=== PATIENT | female | born 1990 | race Two or more races ===

== ENCOUNTER 2019-09-23 03:06 | Observation (INO) | payer BC ==
[2019-09-23] VITALS (26 sets, daily range): BP systolic 80–124; BP diastolic 35–89
[~2019-09-23] VITALS: Ht 165.1 cm; Wt 51.7 kg
--- NOTE | 2019-09-23 03:15 | NUR ---
ED Nurse Note: Pt walked in c/o possible allergic reaction. Pt stated she has difficutly swollowing after eating a hotdog about one hour ago. ao4. nad. vss. family at bedside.
--- NOTE | 2019-09-23 03:20 | NUR ---
ED Nurse Note: iv acess established. blood collected; sent down to lab.
--- NOTE | 2019-09-23 03:28 | Emergency Room Report ---
History of Present Illness General Chief Complaint: Nausea Source: Patient Present Illness HPI Disclaimer: Please note that this report is being documented using DRAGON technology. This can lead to erroneous entry secondary to incorrect interpretation by the dictating instrument. HPI: 29-year-old female presents for evaluation of throat pain. She was at a bar with some friends approx 1 hour ago. She ate a hotdog and after which began to feel pain and swelling in the throat. Had a difficult time swallowing. Try to take a Benadryl but could not swallow the pill. Denies any shortness of breath, stridor, wheezing, chest pain, tightness, nausea, vomiting , diarrhea, fevers, chills, lightheadedness, headaches. Has a history of allergies to peanuts, Bactrim, ragweed but no other known food allergies. No history of anaphylaxis. PMH: Denies PSH: Denies Allergies: Ragweed, Bactrim, peanuts Social Hx: Alcohol use. Denies tobacco use Allergies: Coded Allergies: Cultivated Oat Pollen (Verified Allergy, Unknown, 09/23/19) PEANUT (Verified Allergy, Unknown, 09/23/19) SULFAMETHOXAZOLE (Verified Allergy, Unknown, 09/23/19) TRIMETHOPRIM (Verified Allergy, Unknown, 09/23/19) Patient History Last Menstrual Period: 08/2019 Nursing Documentation-PMH Past Medical History: No Stated History Review of Systems All Other Systems: negative except mentioned in HPI Physical Exam Vital Signs Date Time Temp Pulse Resp B/P (MAP) Pulse Ox O2 Delivery O2 Flow Rate FiO2 09/23/19 03:11 97.9 83 18 112/82 (92) 100 Room Air General: Awake and alert, no acute distress HEENT: NC/AT. EOMI. injected sclera bilaterally. Uvula is midline. Tonsils are 1+ and nonobstructing. No pharyngeal edema, erythema, exudate, vesicles or other abnormalities identified. Spitting up her secretions. Phonation is normal. No stridor. Neck: Supple, trachea midline Chest Wall: No tenderness, no deformity Cardiovascular: RRR. S1 and S2 normal. No murmur appreciated Resp: Normal work of breathing. No cough, wheezing or crackles appreciated Abdomen: Abdomen is soft, nondistended. Nontender Skin: Intact. No abrasions, laceration or rash over the exposed skin MSK: Normal tone and bulk. Moving all extremities. No obvious deformity. Neuro: Awake and alert. Mentating appropriately. Medical Decision Making Diagnostic Impression: Primary Impression: Esophageal obstruction due to food impaction ER Course 29-year-old female presents for evaluation of sore throat and throat swelling sensation after eating a hot dog approximately 1 hour ago. She is concerned over allergic reaction but on my initial evaluation there is no signs of anaphylaxis. Also in the differential are esophageal trauma, peritonsillar abscess, retropharyngeal abscess, esophageal spasm, food bolus, food impaction. Vital signs are within normal limits. Visual inspection of pharynx unremarkable. She is having some difficulty with her secretions. Phonation is normal. Will give Benadryl, steroids, Toradol. Lungs are clear otherwise. Will obtain noncontrast CT scan of the neck and chest as well as basic labs. Laboratory Tests Test 09/23/19 03:15 White Blood Count 7.7 K/UL (4.8-10.8) Red Blood Count 4.64 M/UL (4.20-5.40) Hemoglobin 14.1 G/DL (12.0-16.0) Hematocrit 41.6 % (37.0-47.0) Mean Corpuscular Volume 90 FL (80-99) Mean Corpuscular Hemoglobin 30.4 PG (27.0-31.0) Mean Corpuscular Hemoglobin Concent 33.9 G/DL (32.0-36.0) Red Cell Distribution Width 11.2 % (11.6-14.8) L Platelet Count 380 K/UL (150-450) Mean Platelet Volume 4.6 FL (6.5-10.1) L Neutrophils (%) (Auto) % (45.0-75.0) Lymphocytes (%) (Auto) % (20.0-45.0) Monocytes (%) (Auto) % (1.0-10.0) Eosinophils (%) (Auto) % (0.0-3.0) Basophils (%) (Auto) % (0.0-2.0) Neutrophils % (Manual) Pending Lymphocytes % (Manual) Pending Platelet Estimate Pending Platelet Morphology Pending Sodium Level 141 MMOL/L (136-145) Potassium Level 3.6 MMOL/L (3.5-5.1) Chloride Level 102 MMOL/L (98-107) Carbon Dioxide Level 26 MMOL/L (21-32) Anion Gap 13 mmol/L (5-15) Blood Urea Nitrogen 9 mg/dL (7-18) Creatinine 0.9 MG/DL (0.55-1.30) Estimate Glomerular Filtration Rate > 60 mL/min (>60) Glucose Level 108 MG/DL (74-106) H Calcium Level 9.1 MG/DL (8.5-10.1) Human Chorionic Gonadotropin, Qual Negative (NEGATIVE) Reevaluation Time: 07:16 Last Vital Signs Date Time Temp Pulse Resp B/P (MAP) Pulse Ox O2 Delivery O2 Flow Rate FiO2 09/23/19 03:11 97.9 83 18 112/82 (92) 100 Room Air Reevaluation Impression Attempted to pass a glide scope to evaluate the lower pharynx but was unable to see any foreign body or abnormalities. CT of the neck shows a upper esophageal food bolus concerning for impaction. No other findings on CT of the chest. Patient tried to drink some carbonated beverage jump up and down and was given glucagon as well without significant improvement. Will discuss with GI. Patient will be signed out to oncoming physician. Signed Out To: Dr. Mainor Jaime Hydrocodone Bit/Acetaminophen 5-325* (NORCO 5-325*) 1 Each Tablet 1 TAB ORAL Q4H PRN for 7 Days, #20 TAB Prov: Narendra Felder MD 09/24/19 Juan Whitfield MD Sep 23, 2019 03:28
[2019-09-23] MEDS ORDERED: Ketorolac 30mg Inj IV ONE (03:30)
[2019-09-23] MEDS ORDERED: Solu-MEDROL 125mg Inj IVP ONE (03:30)
[2019-09-23] MEDS ORDERED: DiphenhydrAMINE 50mg/ml Inj IVP ONE (03:30)
[2019-09-23 05:20] LABS: HEMATOCRIT 41.6 % (37.0-47.0); HEMOGLOBIN 14.1 G/DL (12.0-16.0); MEAN CORPUSCULAR VOLUME 90 FL (80-99); PLATELET COUNT 380 K/UL (150-450); RED BLOOD COUNT 4.64 M/UL (4.20-5.40); RED CELL DISTRIBUTION WIDTH 11.2 % (11.6-14.8); WHITE BLOOD COUNT 7.7 K/UL (4.8-10.8)
[2019-09-23 05:23] LABS: ANION GAP 13 mmol/L (5-15); BLOOD UREA NITROGEN 9 mg/dL (7-18); CALCIUM 9.1 MG/DL (8.5-10.1); CARBON DIOXIDE 26 MMOL/L (21-32); CHLORIDE 102 MMOL/L (98-107); CREATININE 0.9 MG/DL (0.55-1.30); POTASSIUM 3.6 MMOL/L (3.5-5.1); SODIUM 141 MMOL/L (136-145)
[2019-09-23] MEDS ORDERED: Glucagon 1mg Inj IV ONE (06:00)
--- NOTE | 2019-09-23 06:32 | NUR ---
HAND-OFF: Report given to gomez. patient in stable condition.
--- NOTE | 2019-09-23 06:52 | Diagnostic Imaging Report ---
EXAM: CT Neck Without Intravenous Contrast CLINICAL HISTORY: PAIN TECHNIQUE: Axial computed tomography images of the neck without intravenous contrast. CTDI is 3.7 mGy and DLP is 114 mGy-cm. One or more of the following dose reduction techniques were used: automated exposure control, adjustment of the mA and/or kV according to patient size, use of iterative reconstruction technique. Coronal and sagittal reformatted images were created and reviewed. COMPARISON: No relevant prior studies available. FINDINGS: Oropharynx: Unremarkable. No significant tonsillar enlargement. Hypopharynx: Unremarkable. No edema. Larynx: Unremarkable. No thickening of the epiglottis. Trachea: Unremarkable. Retropharyngeal space: Unremarkable. No fluid collection. Submandibular/parotid glands: Unremarkable. No CT evidence of acute sialadenitis. Thyroid: Unremarkable. No focal lesion. Bones/joints: No acute fracture. Soft tissues: No soft tissue gas to suggest indirect evidence of upper airway perforation. Vasculature: No acute findings. Lymph nodes: Unremarkable. No lymphadenopathy. Esophagus: 3.8 cm x 1.7 cm x 2 cm (craniocaudad/AP/transverse) mixed density distending the upper esophagus suggestive of impacted food bolus or other ingested material. Nonspecific linear hyperdensity is present along the superior aspect of the material distending the esophagus. Lung apices: See separate CT chest report. IMPRESSION: 1. 3.8 cm x 1.7 cm x 2 cm mixed density distending the upper esophagus suggestive of impacted food bolus. Nonspecific linear hyperdensity is present along the superior aspect of the material distending the esophagus. Correlate with patient history/presentation. GI consultation could be obtained as clinically warranted. 2. No soft tissue gas to suggest indirect evidence of upper airway perforation. <MYCVCSECTION> Communications: 09/23/19 07:01 Verify Receipt Verified receipt with ALBER Farias, given to DR. Whitfield on 09/22 07:01 (-08:00)
--- NOTE | 2019-09-23 06:56 | Diagnostic Imaging Report ---
EXAM: CT Chest Without Intravenous Contrast CLINICAL HISTORY: Shortness of breath TECHNIQUE: Axial computed tomography images of the chest without intravenous contrast. CTDI is 2.9 mGy and DLP is 89.3 mGy-cm. One or more of the following dose reduction techniques were used: automated exposure control, adjustment of the mA and/or kV according to patient size, use of iterative reconstruction technique. Coronal and sagittal reformatted images were created and reviewed. COMPARISON: No relevant prior studies available. FINDINGS: Lungs: No focal consolidation. Right upper lobe granuloma. Pleural space: No pleural effusion or pneumothorax. Heart: Unremarkable. No cardiomegaly. No significant pericardial effusion. Mediastinum: Impacted food bolus distending the upper esophagus as described on separate CT neck report. No pneumomediastinum. Bones/joints: Chronic multilevel endplate height loss/Schmorl's nodes contributing to mildly exaggerated kyphosis Soft tissues: Unremarkable. Vasculature: Unremarkable. No thoracic aortic aneurysm. Lymph nodes: Unremarkable. No enlarged lymph nodes. IMPRESSION: 1. Impacted food bolus distending the upper esophagus as described on separate CT neck report. See separate report for further detail. 2. No pneumomediastinum. <MYCVCSECTION> Communications: 09/23/19 07:02 Verify Receipt Verified receipt with ALBER Farias, given to DR. Whitfield on 09/22 07:02 (-08:00)
--- NOTE | 2019-09-23 07:10 | NUR ---
ED Nurse Note: Received report from Natalei VALENTIN. Patient resting in bed, no s/s of acute distress.
--- NOTE | 2019-09-23 07:20 | NUR ---
HAND-OFF: Report given to BARBIE Viveros.
[2019-09-23] MEDS: Potassium Chloride 10 MEQ in D5 1/2NS 1,000 ML IV SCH ×2 (08:05→17:30)
[2019-09-23] MEDS ORDERED: Morphine Sulfate 2mg/ml Inj(IV/IM USE ONLY) IVP ONE (09:45)
--- NOTE | 2019-09-23 09:50 | NUR ---
HAND-OFF: Report given to Janny VALENTIN.
[2019-09-23] MEDS ORDERED: Lidocaine 1% MPF 10mg/ml 5ml ONE (10:00)
[2019-09-23] MEDS ORDERED: Flumazenil 0.1mg/ml 5ml Inj IV ONE ×3 (10:00→11:45)
[2019-09-23] MEDS ORDERED: D5NS 1,000 ML IV SCH (10:00)
[2019-09-23] MEDS ORDERED: Albuterol/Ipratropium 3ml neb HHN PRN (10:00)
[2019-09-23] MEDS ORDERED: Propofol 200mg/20ml IV ONE ×3 (10:00→12:45)
[2019-09-23] MEDS ORDERED: LR 1000ml ONE (10:00)
--- NOTE | 2019-09-23 10:00 | NUR ---
ED Nurse Note: PT SIGNED TO CONSENT ON ESOPHAGOGASTRODUODENOSCOPY WITH POSSIBLE BIOPSY, POLYPECTOMY, HEMOSTASIS, DILATION AND FOREIGN BODY REMOVED. DR MADDOX AT THE BED SIDE.
--- NOTE | 2019-09-23 10:01 | NUR ---
ED Nurse Note: RN INSTRUCTED PT NOT TO EAT OR DRINK ANYTHING. PT VERBALIZED UNDERSTANDING OF TEACHINGS.
--- NOTE | 2019-09-23 10:46 | NUR ---
ED Nurse Note: Dr Armen Elizabeth and Dr Klaus Gant at the bed side for esophagogastroduodenoscopy procedure under general anesthesia. Primary RN and OR tech assisted at the bed side. Time Out at 1046am.
--- NOTE | 2019-09-23 10:51 | NUR ---
ED Nurse Note: Intubation done by Dr Diehl at the bed side. Ambubaging pt with oxygen at 15LPM.
--- NOTE | 2019-09-23 10:59 | NUR ---
ED Nurse Note: Versed 5mg IVP given at [address] Gant Ketamine 75mg given IVP at [address] Gant Propofol 1000mg given IVP at [address] Gant Lidocaine 100mg given IVP at [address] Gant
--- NOTE | 2019-09-23 11:00 | NUR ---
ED Nurse Note: RN pulled put Propofol 1000mg/ml and another 200mg/20ml from pyxis per Dr Gant's order for General Anesthesia.
--- NOTE | 2019-09-23 11:14 | NUR ---
ED Nurse Note: Propofol 200mg given IVP by Dr Gant at 1114.
--- NOTE | 2019-09-23 11:25 | NUR ---
ED Nurse Note: Propofol 1000mg via infusion/piggyback by Dr Gant.
--- NOTE | 2019-09-23 12:12 | NUR ---
ED Nurse Note: Extubation done at [address] Diehl. Pt unresponsive to tactile stimuli such as sternal rub. Oxygen via simple mask at 15LPM ongoing. RT and primary RN at the bed side.
--- NOTE | 2019-09-23 12:29 | Anethesia Preoperative Eval ---
Anesthesia Pre-op PMH/ROS General Date of Evaluation: Sep 23, 2019 Time of Evaluation: 10:16 Anesthesiologist: Stalin ASA Score: ASA 1 - Emergency Mallampati Score Class I : Soft palate, uvula, fauces, pillars visible Class II: Soft palate, uvula, fauces visible Class III: Soft palate, base of uvula visible Class IV: Only hard plate visible Mallampati Classification: Class I Surgeon: Clara Diagnosis: Foriegn Body in Pharnx Surgical Procedure: Remove Foriegn Body in Pharnx Anesthesia History: none Family History: no anesthesia problems Allergies: Coded Allergies: Cultivated Oat Pollen (Verified Allergy, Unknown, 09/23/19) PEANUT (Verified Allergy, Unknown, 09/23/19) SULFAMETHOXAZOLE (Verified Allergy, Unknown, 09/23/19) TRIMETHOPRIM (Verified Allergy, Unknown, 09/23/19) Medications: see eMAR Patient NPO?: Yes Past Medical History Neurologic/Psychiatric: Reports: other - ADHD Anesthesia Pre-op Phys. Exam Physician Exam Last Vital Signs Date Time Temp Pulse Resp B/P (MAP) Pulse Ox O2 Delivery O2 Flow Rate FiO2 09/23/19 10:51 96 16 106/60 96 Simple Mask 15.0 09/23/19 10:46 98.0 Constitutional: NAD Neurologic: CN 2-12 intact Cardiovascular: RRR Respiratory: CTA Gastrointestinal: S/NT/ND Airway Exam Mallampati Score: Class I MO: full ROM: full Teeth: intact Anesthesia Pre-op A/P Labs Hematology Test 09/23/19 03:15 White Blood Count 7.7 K/UL (4.8-10.8) Red Blood Count 4.64 M/UL (4.20-5.40) Hemoglobin 14.1 G/DL (12.0-16.0) Hematocrit 41.6 % (37.0-47.0) Mean Corpuscular Volume 90 FL (80-99) Mean Corpuscular Hemoglobin 30.4 PG (27.0-31.0) Mean Corpuscular Hemoglobin Concent 33.9 G/DL (32.0-36.0) Red Cell Distribution Width 11.2 % (11.6-14.8) L Platelet Count 380 K/UL (150-450) Mean Platelet Volume 4.6 FL (6.5-10.1) L Neutrophils (%) (Auto) % (45.0-75.0) Lymphocytes (%) (Auto) % (20.0-45.0) Monocytes (%) (Auto) % (1.0-10.0) Eosinophils (%) (Auto) % (0.0-3.0) Basophils (%) (Auto) % (0.0-2.0) Differential Total Cells Counted 100 Neutrophils % (Manual) 26 % (45-75) L Lymphocytes % (Manual) 67 % (20-45) H Monocytes % (Manual) 5 % (1-10) Eosinophils % (Manual) 2 % (0-3) Basophils % (Manual) 0 % (0-2) Band Neutrophils 0 % (0-8) Platelet Estimate Adequate Platelet Morphology Normal Red Blood Cell Morphology Normal Chemistry Test 09/23/19 03:15 Sodium Level 141 MMOL/L (136-145) Potassium Level 3.6 MMOL/L (3.5-5.1) Chloride Level 102 MMOL/L (98-107) Carbon Dioxide Level 26 MMOL/L (21-32) Anion Gap 13 mmol/L (5-15) Blood Urea Nitrogen 9 mg/dL (7-18) Creatinine 0.9 MG/DL (0.55-1.30) Estimat Glomerular Filtration Rate > 60 mL/min (>60) Glucose Level 108 MG/DL (74-106) H Calcium Level 9.1 MG/DL (8.5-10.1) Human Chorionic Gonadotropin, Qual Negative (NEGATIVE) Serum Test Test 09/23/19 03:15 Human Chorionic Gonadotropin, Qual Negative (NEGATIVE) Risk Assessment & Plan Assessment: ASA 1E Plan: TIVA Status Change Before Surgery: Klaus Escalera MD Sep 23, 2019 12:29
--- NOTE | 2019-09-23 12:31 | Immediate Post-Op Evaluation ---
Immediate Post-Op Evalulation Immediate Post-Op Evalulation Procedure: Remove Foriegn Body in Pharnx Date of Evaluation: Sep 23, 2019 Time of Evaluation: 12:36 IV Fluids: 2000 NS Blood Products: 0 Estimated Blood Loss: 1 Urinary Output: 0 Blood Pressure Systolic: 91 Blood Pressure Diastolic: 60 Pulse Rate: 87 Respiratory Rate: 16 O2 Sat by Pulse Oximetry: 99 Temperature (Fahrenheit): 98.4 Pain Score (1-10): 1 Nausea: No Vomiting: No Complications 0 Patient Status: awake, reacts, patent, extubated, none Hydration Status: adequate Klaus Gant MD Sep 23, 2019 12:31
--- NOTE | 2019-09-23 12:32 | 48 Hour Post Anesthesia Eval ---
Post Anesthesia Evaluation Procedure: Remove Foriegn Body in Pharnx Date of Evaluation: Sep 23, 2019 Time of Evaluation: 14:46 Blood Pressure Systolic: 101 0: 72 Pulse Rate: 78 Respiratory Rate: 18 Temperature (Fahrenheit): 98.5 O2 Sat by Pulse Oximetry: 100 Airway: patent Nausea: No Vomiting: No Pain Intensity: 0 Hydration Status: adequate Cardiopulmonary Status: Stable Mental Status/LOC: patient returned to baseline Follow-up Care/Observations: 0 Post-Anesthesia Complications: 0 Follow-up care needed: ready to discharge Klaus Gant MD Sep 23, 2019 12:32
--- NOTE | 2019-09-23 12:45 | NUR ---
ED Nurse Note: Pt is occasionally moving and coughing at this time. RN suctioned pt to remove excess saliva. Sats 95 % via simple mask at 15LPM. Still unable to make eye contact. IV fluids running.
--- NOTE | 2019-09-23 13:15 | NUR ---
ED Nurse Note: Pt is more arousable and awake at this time. Pt is responsive to tactile and verbal stimulation. Pt is able to open her eyes when calling her name. Mother at the bed side.
--- NOTE | 2019-09-23 13:36 | NUR ---
ED Nurse Note: Report given to Rina VALENTIN of Med Surg unit.
[2019-09-23] MEDS ORDERED: ADDERAL20 MG ORAL (13:43)
--- NOTE | 2019-09-23 13:57 | NUR ---
ED Nurse Note: Pt transferred to Med Surg unit via gurney with all her belongings sent with her. Pt is more awake and arousable.
--- NOTE | 2019-09-23 14:15 | NUR ---
NURSE NOTES: Pt came up to unit via maile w/mom at bedside and belongings accounted for. Pt A&Ox4; VSS; on 2L NC; groggy but easily arousable; and in no apparent distress. IV site intact/asymptomatic w/IVF infusing. Will contact primary MD for admission orders.
--- NOTE | 2019-09-23 15:15 | Consultation ---
DATE OF CONSULTATION: 09/23/2019 GASTROENTEROLOGY CONSULTATION CONSULTING PHYSICIAN: Armen Elizabeth M.A. CHIEF COMPLAINT: I was asked to see this patient by Dr. Narendra Felder for evaluation of acute dysphagia. HISTORY OF PRESENT ILLNESS: The patient is a 29-year-old white woman without any significant past medical history, who comes into the hospital due to acute dysphagia. The patient states that she had been drinking last night and was somewhat intoxicated. She ate a hot dog, which stuck in her upper chest area and since then she has not been able to eat and clear secretions. She came to the emergency room where she has been diagnosed with acute esophageal food impaction, which shows up in CT scan as well. She has never had any problems swallowing before and she does not have any history of acid reflux disorder. PAST MEDICAL HISTORY: Remarkable for history of ADHD. MEDICATIONS: control pills and Adderall. FAMILY HISTORY: Negative. SOCIAL HISTORY: The patient is single. She has no children. She does not smoke and drinks intermittently. REVIEW OF SYSTEMS: Otherwise negative. PHYSICAL EXAMINATION: GENERAL: Thin white woman seen in the emergency room, spitting out intermittently. HEENT: Normocephalic and atraumatic. NECK: Supple. CHEST: Revealed breath sounds. CARDIOVASCULAR: Revealed tachycardic heart rate. ABDOMEN: Soft. EXTREMITIES: Revealed no edema. LABORATORY AND DIAGNOSTIC DATA: Noted. CT scan was noted. ASSESSMENT: This patient presents with acute esophageal food impaction and she is unable to clear her secretions. She will need to undergo emergency endoscopy with the foreign body removal and possible dilation. The indications, risks, and alternatives were explained and informed consent was obtained. The patient was advised that she may require intubation with mechanical ventilation during the procedure for airway protection. RECOMMENDATIONS: 1. Keep NPO. 2. IV fluids. 3. Emergency endoscopy today. Thank you for asking me to participate in the care of this patient. Armen Elizabeth M.D. DR: MARYAN JOB#: [id number] CC: CUONG
--- NOTE | 2019-09-23 15:45 | History and Physical Report ---
DATE OF ADMISSION: 09/23/2019 CHIEF COMPLAINT: Impacted food bolus. HISTORY OF PRESENT ILLNESS: The patient is a 29-year-old female. She has a history of asthma, was eating a hot dog with her friends the of admission when she swallowed and felt like the food became stuck. She could not swallow any of her secretions. She has some mild shortness of breath. She presented to the emergency room, she has history of noted to be having possible allergic reaction. She received a dose of steroids and Benadryl. She eventually did had a CAT scan that showed an impacted food bolus in the esophagus. She was given glucagon without any improvement. She is now admitted for possible endoscopy for removal of the food bolus. PAST MEDICAL HISTORY: Significant for asthma. MEDICATIONS: None. ALLERGIES: Include Bactrim. FAMILY HISTORY: Noncontributory. SOCIAL HISTORY: Negative for alcohol or drugs. REVIEW OF SYSTEMS: Negative except for difficulty swallowing. PHYSICAL EXAMINATION: VITAL SIGNS: Temperature 98 degrees, pulse 87, respirations 18, and blood pressure 112/82. GENERAL: The patient is well developed, no apparent distress. HEART: Regular rate and rhythm. LUNGS: Clear. ABDOMEN: Soft. EXTREMITIES: Without clubbing, cyanosis, or edema. LABORATORY DATA: White count 8, hemoglobin 14, platelet count of 380. Sodium 141, potassium 3.6. Beta hCG is negative. CT was reviewed with the ER physician. ASSESSMENT: This is a pleasant female with a history of asthma admitted with complaints of an impacted food bolus in the esophagus. PLAN: GI consultation for endoscopy, p.r.n. breathing treatments, IV hydration. [id number] was discussed at the bedside with the patient's sister, who is a nurse. Narendra Felder M.D. DR: CLAUDIO JOB#: [id number] CC:
[2019-09-23] MEDS ORDERED: Chloraseptic Spray 20mL Bottle ORAL PRN (17:15)
[2019-09-23] MEDS: D5NS 1,000 ML IV SCH (18:00)
--- NOTE | 2019-09-23 19:57 | NUR ---
HAND-OFF: Report given to BARBIE Wallace.
[2019-09-23] MEDS: HYDROcodone/Acetamin 5/325 tab ORAL PRN (22:06)
[2019-09-24] VITALS: BP 99/60
--- NOTE | 2019-09-24 01:23 | NUR ---
NURSES NOTE: Met pt in bed, A/OX4, sister at bedside. No outward s/s of distress noted. Breathing pattern is even and unlabored on room air. New IV put into L hand, 20 gauge. New order for [place] 5-325mg q4h PRN obtained. All due meds will be given. Pt states [place] is effective. VS stable. Pt will continue to be monitored.
[2019-09-24 04:00] VITALS: BP 95/58
[2019-09-24] MEDS: HYDROcodone/Acetamin 5/325 tab ORAL PRN (04:13)
[2019-09-24] MEDS: D5NS 1,000 ML IV SCH (05:30)
--- NOTE | 2019-09-24 07:30 | Consultation ---
DATE OF CONSULTATION: 09/23/2019 I attest that I discussed the nature of the procedure, its benefits, risks and complications, and alternatives (and the risks and benefits of such), prior to the procedure, with the patient. I attest that, if there was a reasonable possibility of needing a blood transfusion, the patient was given the [facility] standardized written summary, concerned to the Geovany Francoise Blood Safety Act ([place] Health and Safety Code #1645, as amended). I attest that I re-evaluated the patient just prior to the surgery and that there has been no change in the patient's history and physical examination except as documented below. Armen Elizabeth M.D. DR: Shila JOB#: [id number] CC: CUONG
[2019-09-24] MEDS ORDERED: NORCO 5-325 TA1 EACH ORAL (07:49)
[2019-09-24 08:00] VITALS: BP 100/63
--- NOTE | 2019-09-24 08:00 | NUR ---
NURSE NOTES: Received report from Sophy VALENTIN. Patient is awake and oriented, no acute distress noted, reporting no pain, IVF running per order. Discharge order noted, will carry out. Call light within reach.
--- NOTE | 2019-09-24 08:06 | NUR ---
HAND OFF: Report given to BARBIE Bustamante.
[2019-09-24] MEDS ORDERED: D5NS 1000ml IV ONE (09:09)
--- NOTE | 2019-09-24 09:10 | NUR ---
NURSE NOTES: Patient discharged without distress. Aftercare instructions provided, patient verbalized understanding of aftercare instructions. Patient provided with Rx by Dr. Felder. IV removed intact, wristband removed. Patient escorted to private vehicle.
--- NOTE | 2019-09-24 16:29 | NUR ---
*-* NO INSURANCE INFORMATION IN THE BAR [employer]NA[employer] TO SEND CLINICALS OR REVIEWS *-*
--- NOTE | 2019-09-26 11:10 | Endoscopy Procedure Note ---
Endoscopy Procedure Note General Indication for Procedure: dysphagia Procedures Performed: EGD Operative Findings/Diagnosis: food Specimen: none Pt Tolerated Procedure Well: No Estimated Blood Loss: none Anesthesia Anesthesiologist: Stalin Anesthesia: MAC Medications Medication Given: see anesthesia record Inserted Devices Implant(s) used?: No GI Core Measures 50 yrs or older w/o bx or poly: Not Applicable 10yrs. F/U recommended: Not Applicable Armen Elizabeth MD Sep 26, 2019 11:10
--- NOTE | 2019-09-26 11:12 | Brief Operative Note ---
Immediate Post Operative Note Operative Note Chief Complaint: dysphagia Pre-op Diagnosis: esoph food impaction Procedure: EGD F.B. Post-op Diagnosis: same Surgeon: lilia Anesthesiologist: see report Anesthesia: MAC Specimen: none Complications: none Condition: stable Fluids: see report Estimated Blood Loss: none Drains: none Implant(s) used?: No Armen Elizabeth MD Sep 26, 2019 11:12
--- NOTE | 2019-09-26 14:15 | Procedure Note ---
DATE OF PROCEDURE: 09/23/2019 GASTROENTEROLOGY PROCEDURE REPORT PROCEDURE: Upper gastrointestinal endoscopy with foreign body removal. SURGEON: Armen Elizabeth M.D. ANESTHESIA: Please see the separate anesthesiologist notes for details. PRE-ENDOSCOPIC DIAGNOSIS: Acute dysphagia. POST-ENDOSCOPIC DIAGNOSES: 1. Esophageal food impaction in the proximal esophagus. 2. Mild irregularity and erythema noted in the impacted area. DESCRIPTION OF PROCEDURE: The procedure, its risks, indications, alternatives, and possible complications were explained to the patient and informed consent was obtained. The upper endoscope was introduced through the oropharynx and advanced to the proximal esophagus. Esophageal food impaction was noted. The anesthesiologist then intubated the patient and the procedure was continued. Multiple attempts were made with various instruments including a basket wire, alligator forceps, regular forceps, and optic grasping forceps. There were small pieces of the food that would come out, but successful disimpaction was not possible. Eventually however, the food impaction material softened and could be passed through and then fell into the stomach. Re-examination of the upper esophagus showed some mild narrowing and ring like effect in the area and some erythema on the elkins. There was however no significant narrowing that would require evaluation. The remainder of the upper gastrointestinal examination down to the duodenum was normal. The endoscope was removed. The patient was sent to recovery in good condition. COMPLICATIONS: None. ASSESSMENT: This patient's examination was notable for esophageal food impaction, which is not treated endoscopically and resolved. The patient should receive 2 weeks of proton pump inhibitor therapy to help heal the area in the upper esophagus. She should have a followup endoscopy to re-examine the area for any remaining anatomical defects. RECOMMENDATIONS: 1. Resume oral diet. 2. Proton pump inhibitor daily. 3. A repeat endoscopy in about 2 months. Armen Elizabeth M.D. DR: ESCOBAR JOB#: [id number] CC: CUONG
--- NOTE | 2019-10-14 16:44 | Discharge Summary ---
Discharge Summary Discharge Summary _ DATE OF ADMISSION: 09/23/2019 DATE OF DISCHARGE: 09/24/2019 DISCHARGED BY: Dr. Narendra Felder CONSULTANTS: Dr. Armen Elizabeth BRIEF HOSPITAL COURSE: Patient is a 29-year-old female, with history of asthma, was eating a hot dog and when she swallowed, felt like food got stuck. She could not swallow any of her secretions. She had mild shortness of breath. She presented to the emergency room. Upon evaluation at ED, vital signs were stable. Blood work was unremarkable. hCG negative. CT scan of the neck showed upper esophageal food bolus concerning for impaction. At the ED, ER physician attempted to pass a glide scope to evaluate the lower pharynx but was unable to see any foreign body or abnormalities. She was given a dose of steroids and Benadryl for possible allergic reaction. She was given glucagon without any improvement. She was then admitted for possible endoscopy for removal of food bolus. Patient was admitted under observation. Patient was placed on n.p.o. GI was consulted. Patient presented with acute esophageal food impaction and is unable to clear her secretions. She then underwent emergency endoscopy. Patient underwent upper GI endoscopy with foreign body removal. Findings showed esophageal food impaction in the proximal esophagus. Mild irregularity and erythema in the impacted.. She was recommended 2-week treatment of proton pump inhibitor to help heal the area in the upper esophagus. Recommended to have follow-up endoscopy in about 2 months to examine the area for any remaining anatomical defects. Diet was advanced. She was tolerating diet well. She was eventually cleared for discharge. FINAL DIAGNOSES: Acute dysphasia due to esophageal food impaction status post upper endoscopy DISPOSITION: Patient was discharged home. DISCHARGE MEDICATIONS: Refer to Discharge Medication List. DISCHARGE INSTRUCTIONS: Follow-up in a week. I have been assigned to complete a discharge summary on this account, I was not involved with the patient's management.--SPENCER Love Jacqueline Robles NP Oct 14, 2019 16:44
== END 2019-09-24 09:10 | disposition home or self-care (01) ==
LOC: EMR 03:38 → EDBEDREQSVC 07:58 → EDBEDREQ 12:05 → INTOOBSV 12:24 → 3E 12:24 → EDBEDREQ 13:59
DX: T18.128A Food in esophagus causing other injury, initial encounter (principal); X58.XXXA Exposure to other specified factors, initial encounter; Y92.9 Unspecified place or not applicable; Z79.3 Long term (current) use of hormonal contraceptives; R00.0 Tachycardia, unspecified
CPT/HCPCS: 36415; 43247; 70490; 71250; 80048; 84703; 85007; 85025; 96374; 96375; 99284; J1200; J1610; J1885; J2250; J2270; J2405; J2704; J2930; J3480; J7030; J7120; 94003; 94150; G0378